=== PATIENT | male | born 1970 | race African-American/Black ===

== ENCOUNTER 2021-11-03 09:49 | Emergency (ER) | payer SELFPAY ==
[2021-11-03] MEDS ORDERED: Bupivacaine 0.5% 10 ML VIAL ONE (09:59)
[2021-11-03] MEDS ORDERED: Penicillin V Potassium 250 MG TAB ONE (10:14)
== END 2021-11-03 10:27 | disposition home or self-care (01) ==
LOC: BURERS 09:49
DX: K04.7 Periapical abscess without sinus (principal); I10 Essential (primary) hypertension; F17.220 Nicotine dependence, chewing tobacco, uncomplicated
CPT/HCPCS: 41800; J3490

== ENCOUNTER 2022-08-09 08:31 | Emergency (ER) | payer BC, SELFPAY ==
[2022-08-09] MEDS ORDERED: Insulin Regular 300 UNITS/3 ML VIAL ONE (09:00)
== END 2022-08-09 09:25 | disposition home or self-care (01) ==
LOC: BURERS 08:31
DX: E11.65 Type 2 diabetes mellitus with hyperglycemia (principal); I10 Essential (primary) hypertension; F17.220 Nicotine dependence, chewing tobacco, uncomplicated
CPT/HCPCS: 36416; 99284; J1815